=== PATIENT | female | born 1990 ===

== ENCOUNTER → 2021-03-28 | Outpatient (CLI) | payer SELFPAY ==
[2021-03-28 13:02] LABS: Candida species (DNA Probe) Negative (NEGATIVE); G. vaginalis (DNA Probe) Negative (NEGATIVE); T. vaginalis (DNA Probe) Negative (NEGATIVE)
== END | disposition home or self-care (01) ==
LOC: LAB SHORT 12:02
PROVIDERS: Family Medicine
DX: N89.8 Other specified noninflammatory disorders of vagina (principal)
CPT/HCPCS: 87480; 87510; 87660

== ENCOUNTER → 2021-03-28 | Outpatient (CLI) | payer MEDICARE | END | disposition home or self-care (01) | LOC: LAB 13:40 → LAB SHORT 13:40 | DX: R39.15 Urgency of urination (principal) | CPT/HCPCS: 87086 ==